=== PATIENT | female | born 1990 | race Caucasian/White ===

== ENCOUNTER 2024-05-10 02:07 | Day surgery (SDC) | payer OTHER, SELFPAY ==
[2024-05-04 16:15] VITALS: BMI 20.9
--- NOTE | 2024-05-04 16:44 | PC.NURSE ---
Report to the Outpatient Waiting Room, entrance under the green pavilion located off [facility], at 0900 on 05-10-24. Planned Procedure Time: 1100.? Time changes happen often and if your time is changed the preop area will call you the afternoon before. - You and your visitor will be asked to self-screen and do not enter if you have any COVID symptoms. Please call surgeon if you need to reschedule. - A mask is optional within the hospital at this time. Patients may have clear liquids (water, carbonated beverages, clear teas, apple juice) until 3 hours prior to surgery with a maximum of 20 ounces. 0800 - No food from midnight until time of surgery and no smoking - Infants may have breast milk until 4 hours before surgery, formula 6 hours prior to surgery. - Children will be allowed to drink immediately following surgery.? If applicable, please bring a bottle or sippy cup to assist with drinking. Juice, water, soda, and popsicles are readily available.? For infants on formula, please bring formula the day of surgery.? Pacifiers are allowed. Take only the following medications with a SIP of water on the morning of surgery: [place] thyroid DO NOT STOP ANY OF YOUR OTHER PRESCRIPTION MEDICATIONS PRIOR TO SURGERY EXCEPT THE FOLLOWING Medications to discontinue per physician: N/A Please no make-up, nail mexican, hairspray, perfume, deodorant, or body powder the day of surgery.? No jewelry (including any body piercings) or valuables the day of surgery, leave them at home.? Please take a shower or bath the night before, or the morning of, surgery with an antibacterial soap.? Wear comfortable, loose fitting clothing.? Button down shirt/ zip-up jacket is best for this surgery Children are encouraged to wear pajamas. - Jewelry must be removed prior to entering the operating room.? Rings and piercings that are not removed may be cut off. - The hospital will not accept responsibility for valuables.? - Please leave all valuables, including medications, at home the day of surgery. If you are going home after surgery, a licensed local company intermodal truck driver must drive you home.? - NO public transportation without another adult if you receive anesthesia. - We recommend that an adult stay with you for 24 hours following discharge. - We also recommend that you do not drive, make important decision, drink alcoholic beverages, or take any drugs that were not prescribed by your health care provider for at least 24 hours after your discharge time. For Pediatric surgeries, we recommend two adults accompany the child home. Follow any additional instructions given to you from your surgeon. Telephone instructions given to Yeimy Rajput and asked if any additional questions and then verbalized understanding. Patient advised to call surgeon office or pre surgery nurse liaison [phone] if any additional questions.
[2024-05-10] VITALS (10 sets, daily range): BP systolic 104–119; BP diastolic 47–84; PULSE 75–120; RESP 15–19; TEMP 36.5–37.1; O2SAT 98–100; BMI 20.7
--- NOTE | 2024-05-10 08:17 | WPDANESEPPF ---
Anes - Initial Pre Proc Eval Procedure: Operation Date: 05/10/24 11:00 Proposed Procedures p Bilateral Breast Augmentation - Deniz James MD Date/Time: 05/10/24 08:17 Surgeon: Deniz James MD Pre Op Diagnosis: micromastia Patient Data Age: 33 Gender: F Height: 1.68 m Weight: 58.97 kg Allergies Allergy/AdvReac Type Severity Reaction Status Date / Time latex Allergy Intermediate Swelling Verified 05/10/24 10:10 Sulfa (Sulfonamide Allergy Mild Rash Verified 05/10/24 10:10 Antibiotics) Home Medications Medication Instructions Recorded Confirmed Type thyroid (pork) 120 mg tablet 120 mg PO DAILY 05/04/24 05/04/24 History ([place] Thyroid) Patient hx anesthesia problems: none Family hx anesthesia problems: none Results Review: All pre-operative results and documents have been reviewed as part of the pre-operative evaluation. [facility] Past Medical History Medical History (Updated 05/10/24 @ 08:18 by Alin Velazco DO) History of thyroid cancer 2021 PONV (postoperative nausea and vomiting) Social History Social History Smoking status: Never smoker Second hand tobacco smoke exposure: No Alcohol intake: current Alcohol use details: Socially sometimes Substance use: never Substance use type: does not use Living arrangements: with family Spiritual care concerns: No Anes - Eval Final PreProcedure Day of Procedure 05/10/24 08:17 Patient weight: normal Heart: regular rate and rhythm Lungs: clear to auscultation Airway: Mallampati scale class II Neurological: alert and oriented Last oral intake: >/= 8 hours ASA classification: II Emergent: no Anesthetic plan: proceed Anesthesia type and monitoring: general LMA and standard monitoring Results Review: All pre-operative results and documents have been reviewed as part of the pre-operative evaluation. Informed Consent: The patient's anesthetic plan and its attendant risks and benefits were discussed with the patient/family/POA. Questions were solicited and answers provided to the satisfaction of the patient/family/POA.
--- NOTE | 2024-05-10 10:13 | WPDHPUPDATE1 ---
History and Physical Update Update Date/Time: 05/10/24 10:13 History and Physical has been reviewed, including an updated exam of the patient. There are NO changes in the patient's condition. Risks, benefits, and alternatives have been discussed and questions answered. Patient agrees to proceed with procedure.
--- NOTE | 2024-05-10 10:13 | W.PM.PROC2 ---
Procedure Note - Detailed Date of Procedure 05/10/24 Pre-op Diagnosis micromastia Post-op Diagnosis Same Procedure Performed Bilateral augmentation mammaplasty Surgeon Deniz James MD Anesthesia General Findings Bilateral Paulino Jeffrey SoftTouch 415cc Dual plane 2 Right - REF# [id number] SN [id number] Left - REF# [id number] SN [id number] Description of Procedure She is here today for bilateral breast augmentation. Previously and again today the risks, benefits, alternatives were discussed in extensive detail. I wanted her to be very realistic about the risks involved as well as expectations. She understands she have residual laxity / ptosis and would need a second stage mastopexy (at her expense). We discussed aftercare and what to monitor for. Made sure answered all of her questions to her satisfaction today and consent was obtained. Marked in the preoperative holding area with their verification. The patient was taken to the operating room placed supine on the operating table. Anesthesia was provided by anesthesiology. A surgical time-out was taken. We cleansed the skin and 1% lidocaine and 0.25% Marcaine with epinephrine was used anesthetize as a field block. She was prepped and draped in a standard sterile fashion. Tegaderm nipple Kat were placed. A 15 blade used to make an incision along the inframammary fold. Dissection was continued at 45 degree angle until the chest wall as identified. I incised the pectoralis major along its inferior border and completely released the inferior border leaving the medial border intact. I created a subpectoral pocket in the appropriate dimensions based on our preoperative planning for the implant. I then copiously irrigated with saline solution and verified a strict hemostasis. Next the use a triple antibiotic and Betadine containing solution to irrigate the pocket. I washed my gloves with the triple antibiotic and Betadine solution. We washed the implant immediately upon opening it with this solution and only opened it when we needed it. I used implant funnel and no-touch technique. The implant was introduced into the pocket using the funnel. Having verified positioning of the implant this was closed using 2-0 PDS followed by 3-0 Monocryl in a running subcuticular 4-0 Monocryl followed by tissue glue. Fluffs and surgical bra were placed. Patient was awoke and taken to PACU without difficulty. All instrument sponge counts were correct at the end of the case. Estimated Blood Loss 30 Drains No Packing No Pathology None sent Complications No immediate complications Condition Stable Disposition PACU
[2024-05-10] MEDS: ceFAZolin 2 GM/D5W 50 ML 2 GM/50 ML BAG IVPB (10:32)
[2024-05-10] MEDS: TRANEXAMIC ACID 1,000MG/ISO100 1,000 MG/100 ML BAG 200 MG IVPB (10:32)
[2024-05-10] MEDS: LACTATED RINGERS 1,000 ML 30 ML IV CONT ×2 (10:34→11:35)
[2024-05-10] MEDS: SCOPOLAMINE 1 MG PATCH 1 PATCH TRANSDERM (10:34)
[2024-05-10] MEDS: LIDO 1%/EPINEPHRINE/PF 1:200,000 30 ML VIAL XX (10:45)
[2024-05-10] MEDS: NACL 0.9% IRRIG POUR BOTTLE 900 ML, GENTAMICIN SULFATE INJ 160 MG, ceFAZolin 2 GM, POVI... IRRIGATION (11:37)
[2024-05-10] MEDS: fentaNYL CITRATE INJ (*CRX) 100 MCG/2 ML VIAL 25 MCG IV PUSH ×2 (12:02→12:50)
[2024-05-10] MEDS: ONDANSETRON INJ 4 MG/2 ML VIAL IV PUSH (13:37)
[2024-05-10] MEDS: oxyCODONE HCL (*CRX) 5 MG TAB IR PO (13:37)
== END 2024-05-10 14:19 | disposition home or self-care (01) ==
PROVIDERS: PCP Family Medicine; Visit Provider Surgery Plastic and Reconstructive Surgery
PROC: (CPT 19325; principal; 2024-05-10 11:00)
DX: Z41.1 Encounter for cosmetic surgery (principal); N64.82 Hypoplasia of breast
CPT/HCPCS: 19325; A9270; J0690; J1100; J1580; J2250; J2405; J2704; J3010; J7120

== ENCOUNTER 2024-05-14 09:38 | Emergency (ER) | payer OTHER, SELFPAY ==
--- NOTE | ~2024-05-14 | XR_ITS ---
Portable chest x-ray Comparison: None Clinical History: Postoperative nausea and vomiting Findings: Lungs are clear, without focal consolidation or pleural effusion. Cardiomediastinal silho uette is stable. Bones and soft tissues are unremarkable. Impression: Normal chest. Reviewed, dictated and finalized at location . Impression: Normal chest.
[2024-05-14 09:40] VITALS: BP 143/80; PULSE 122; RESP 14; TEMP 36.5; O2SAT 100
--- NOTE | 2024-05-14 10:04 | PC.NURSE ---
Pt reports taking 8mg zofran today
[2024-05-14 10:05] VITALS: BP 117/75; PULSE 102; RESP 18; O2SAT 100
[2024-05-14 10:18] LABS: BEDSIDEPREGUCG Negative
[2024-05-14 10:25] LABS: Basophils Percent Auto 0.8 % (0.2-1.2); Eosinophils Percent Auto 0.2 % (0-4.4); Hemoglobin 11.3 g/dL (12.0-15.0); Immature Granulocyte Absolute 0.01 K/mm3 (0.00-0.031); Immature Granulocyte Percent A 0.2 % (0-0.5); Lymphocytes Percent Auto 15.2 % (18.3-44.2); Mean Corpuscular HGB Conc 32.3 g/dl (32-36); Mean Corpuscular Hemoglobin 26.2 pg (26-34); Mean Corpuscular Volume 81.2 fl (80-100); Monocytes Absolute Auto 0.2 K/mm3 (0.1-0.6); Monocytes Percent Auto 4.2 % (2.6-8.5); Neutrophils Absolute Auto 4.2 K/mm3 (1.3-6.7); Neutrophils Percent Auto 79.4 % (45.5-73.1); Platelet Count Result 297 k/mm3 (150-375); Red Blood Count 4.31 M/mm3 (4.2-5.4); White Blood Count 5.3 K/mm3 (4.5-10.0)
[2024-05-14 10:32] LABS: Bacteria Urine None Seen /hpf; Non Pathogenic Casts 0-2; RBC Urine 0-2 /hpf (0-2); Squamous Epithelial Cell Urine Occasional /hpf (Few); WBC Urine 0-5 /hpf (0-3)
[2024-05-14 10:35] LABS: Alanine Aminotransferase 29 U/L (6-35); Albumin Level 4.5 g/dL (3.5-5.1); Alkaline Phosphatase 44 U/L (38-126); Anion Gap 11 mmol/L (4-12); Aspartate Amino Transferase 53 U/L (14-36); Bilirubin,Total 0.4 mg/dL (0.2-1.3); Blood Urea Nitrogen 8 mg/dL (7-17); Calcium 8.5 mg/dL (8.4-10.2); Carbon Dioxide 26 mmol/L (22-30); Chloride 103 mmol/L (98-107); Estimated CRCL calculation 91 ml/min; Estimated Glomerular Filt Rate > 60; Glucose 101 mg/dL (65-110); Lipase 77 U/L (23-300); Potassium 3.8 mmol/L (3.4-5.0); Sodium 140 mmol/L (137-145)
[2024-05-14 10:41] LABS: Appearance Urine Clear (Clear); Blood Urine Trace-intact (Negative); Color Urine Yellow (Yellow); Glucose Urine UA Negative (Negative); Ketones Urine Trace mg/dL (Negative); Nitrate Urine Negative (Negative); Protein Urine Negative (Negative)
[2024-05-14 10:42] LABS: Add Urine Microscopic? YES; Bilirubin Urine Negative (Negative); Leukocyte Esterase Ur Negative LEU/UL (Negative); Urobilinogen Urine 0.2 mg/dL (<2.0)
--- NOTE | 2024-05-14 10:43 | ED.NAVMDI ---
HPI - Nausea/Vomiting/Diarrhea General Chief complaint: Nausea/Vomiting/Diarrhea Stated complaint: N/V, DIZZY, 4 DAYS POST OP Time Seen by Provider: 05/14/24 10:34 Source: patient Mode of arrival: ambulatory Limitations: no limitations History of Present Illness HPI Narrative: This is a 33-year-old female who is postop day 4 from breast augmentation who presents to the ED for chief complaint N/V/ D as well as lightheadedness. Patient reports that yesterday she started to feel unwell. endorses greater than 5 episodes of. No vomiting feels like she is dry heaving lot. States that she took Zofran twice this morning and still feels nauseous. There is some abdominal cramping that is onset just before the diarrheal episodes, but otherwise no abdominal pain denies chest pain or pain surgery site. Denies any fevers, chills, cough, shortness breath, syncope, back pain. Related Data Home Medications Medication Instructions Recorded Confirmed thyroid (pork) 120 mg tablet 120 mg PO DAILY 05/04/24 05/10/24 ([place] Thyroid) Allergies Allergy/AdvReac Type Severity Reaction Status Date / Time latex Allergy Intermediate Swelling Verified 05/14/24 09:38 Sulfa (Sulfonamide Allergy Mild Rash Verified 05/14/24 09:38 Antibiotics) Review of Systems Review of Systems: All systems as dictated in [facility] Past Medical History Medical History (Updated 05/14/24 @ 12:58 by Oniel Rivero PA-C) History of thyroid cancer 2021 PONV (postoperative nausea and vomiting) Social History Social History Smoking status: Never smoker Second hand tobacco smoke exposure: No Alcohol intake: current Alcohol use details: Socially sometimes Substance use: never Substance use type: does not use Living arrangements: with family Spiritual care concerns: No Exam Narrative: GENERAL: Well-appearing, well-nourished, and in no acute distress. HEAD: Normocephalic, atraumatic. EYES: PERRLA and EOMI. ENT: Nares clear, no rhinorrhea or epistaxis. Mucous membranes moist. Oropharynx without tonsillar hypertrophy exudate or other lesions. NECK: Supple. No adenopathy or masses. CHEST: No respiratory distress. Clear to auscultation. No wheezes rales or rhonchi HEART: Regular rate and rhythm. No murmur heard. Normal peripheral pulses. ABDOMEN: Soft, nontender, nondistended, normal active bowel sounds. MSK: Normal range of motion. No edema. SKIN: Warm, dry, no rash. NEURO: Alert and oriented x4. No focal deficits. PSYCH: Normal mood and affect. Course Vital Signs Vital signs: Vital Signs Temperature 97.7 F 05/14/24 09:40 Pulse Rate 122 H 05/14/24 09:40 Respiratory Rate 14 05/14/24 09:40 Blood Pressure 143/80 H 05/14/24 09:40 Pulse Oximetry 100 05/14/24 09:40 Oxygen Delivery Room Air 05/14/24 09:40 Temperature 97.7 F 05/14/24 09:40 Pulse Rate 100 05/14/24 13:09 Respiratory Rate 17 05/14/24 13:09 Blood Pressure 111/72 05/14/24 13:09 Pulse Oximetry 99 05/14/24 13:09 Oxygen Delivery Room Air 05/14/24 09:40 MDM - Nausea/Vomiting/Diarrhea MDM Narrative Medical decision making narrative: This is a 33-year-old female who presents to the ED for chief complaint N/V/ D after recent surgery, breast augmentation. Vitals are initially showing some tachycardia but otherwise normal. Exam does not reveal any abdominal tenderness. No complaints of soreness or pain at the surgical sites. Lab work is unremarkable overall. Chest x-ray and urinalysis do not reveal any infection. There is some evidence of dehydration on the urinalysis. She was provided 2 L of fluids and Phenergan here which helped relieve the nausea. She feels better after the fluids and is ready to go home. Presentation consistent with gastroenteritis. Pt will be discharged in stable condition. Return precautions given and supportive measures discussed. Pt is understanding and agreeable with plan for di
[2024-05-14] MEDS: SODIUM CHLORIDE 0.9% IV 1,000 ML 999 ML IV CONT ×2 (11:06→11:39)
[2024-05-14] MEDS: PROMETHAZINE HCL 25 MG/ML AMPUL 12.5 MG IV PUSH (11:06)
[2024-05-14 11:07] VITALS: BP 128/84; PULSE 100; RESP 14; O2SAT 100
--- NOTE | 2024-05-14 11:41 | PC.NURSE ---
Pt requesting something to drink. EDP Oniel Rivero states pt can have water.
[2024-05-14 12:25] VITALS: BP 124/71; PULSE 86; RESP 16; O2SAT 99
[2024-05-14 13:09] VITALS: BP 111/72; PULSE 100; RESP 17; O2SAT 99
== END 2024-05-14 13:10 | disposition home or self-care (01) ==
PROVIDERS: Student in an Organized Health Care Education/Training Program; Emergency Provider Physician Assistant; PCP Family Medicine
DX: K52.9 Noninfective gastroenteritis and colitis, unspecified (principal); E86.0 Dehydration; Z98.890 Other specified postprocedural states
CPT/HCPCS: 36415; 71045; 80053; 81001; 81025; 83690; 85025; 96361; 96374; 99284; J2550; J7030